=== PATIENT | male | born 1980 | race Caucasian/White ===

== ENCOUNTER 2020-03-31 13:35 | Emergency (ER) | payer OTHER, SELFPAY ==
[2020-03-31 14:03] VITALS: BP 140/54; PULSE 87; RESP 16; TEMP 37.1; O2SAT 99
--- NOTE | 2020-03-31 14:37 | ED.SKABFB ---
HPI - Skin/Abscess/Foreign Bdy General Chief complaint: Skin/Abscess/Foreign Body Stated complaint: rash/right hand Time Seen by Provider: 03/31/20 14:37 Source: patient Mode of arrival: ambulatory Limitations: no limitations History of Present Illness HPI narrative: Zev Coronel is a 39 yo male with no PMH who comes to express care for c/o small vesicular rash on dorsum of R hand x 7 days- small area Related Data Home Medications Medication Instructions Recorded Confirmed No Home Medications 03/31/20 03/31/20 Allergies Allergy/AdvReac Type Severity Reaction Status Date / Time sulfamethoxazole Allergy Mild Rash Verified 03/31/20 14:16 trimethoprim Allergy Mild Rash Verified 03/31/20 14:16 Review of Systems Review of Systems: Narrative: CONSTITUTIONAL: Denies fever, chills, sweats. EYES: Denies visual changes, redness, discharge. ENT: Denies rhinorrhea, congestion, sore throat, otalgia. CARDIOVASCULAR: Denies chest pain, palpitations, edema. RESPIRATORY: Denies dyspnea, wheezing, cough GASTROINTESTINAL: Denies abdominal pain, nausea, vomiting, diarrhea. GENITOURINARY: Denies dysuria, hematuria, abnormal discharge SKIN: Rash on small area right dorsum of hand. NEUROLOGIC: Denies numbness, or focal weakness. PSYCHIATRIC: Denies anxiety or depression. [facility] Family History Family History Other No acute medical problems Social History Social History (Updated 03/31/20 @ 14:40 by Karlene Garcia CNP) Smoking status: Never smoker Alcohol intake: current Gender identity (if verbalized by the patient): Male Comments At time of signature, I agree with nursing past medical, surgical, social and family history. There is no relevant family history pertinent to the presenting complaint. Exam Narrative: Exam Narrative: GENERAL: This is a well-nourished, well-developed patient, psych arnp distress. HEAD: normocephalic, atraumatic. EYES: Sclera clear/white. Vision is grossly intact. EARS: External ears normal, . Hearing grossly intact. NOSE: External nose normal without nasal discharge, nares without redness, no rhinorrhea. THROAT: Mucous membranes moist, NECK: Neck supple, CARDIOVASCULAR: Regular rate and rhythm without murmurs, gallops, or rubs. RESPIRATORY: Clear to auscultation. Breath sounds equal bilaterally. No wheezes, rales, or rhonchi. GASTROINTESTINAL: Abdomen soft, SKIN: warm, intact with small 2x3 lesion with vesiculars, no spread, no swelling NEURO: awake, alert, and oriented to person, place and time. There were no obvious focal neurologic abnormalities. EXTREMITIES: Normal range of motion. BACK: without deformity Course Course Emergency Course: rrecommended hydrocortisone cream to area- cover only at work Vital Signs Vital signs: Vital Signs Temperature 98.8 F 03/31/20 14:03 Pulse Rate 87 03/31/20 14:03 Respiratory Rate 16 03/31/20 14:03 Blood Pressure 140/54 L 03/31/20 14:03 Pulse Oximetry 99 03/31/20 14:03 Temperature 98.8 F 03/31/20 14:03 Pulse Rate 87 03/31/20 14:03 Respiratory Rate 16 03/31/20 14:03 Blood Pressure 140/54 L 03/31/20 14:03 Pulse Oximetry 99 03/31/20 14:03 MDM - Skin/Abscess/Foreign Bdy Differential Diagnosis Differential diagnosis: Likely abscess of skin or subcutaneous tissue, allergic reaction to drug, contact dermatitis and other Discharge Plan Discharge Clinical Impression: Contact dermatitis Qualifiers: Contact dermatitis type: unspecified Contact dermatitis trigger: unspecified trigger Qualified Code(s): L25.9 - Unspecified contact dermatitis, unspecified cause Patient Disposition: Home, Self-Care Condition: Stable Instructions: Contact Dermatitis (DC) Prescriptions: No Action No Home Medications RF: 0 Follow-up/Referrals: UNKNOWN,DOCTOR [Primary Care Provider] - Time of Disposition: 14:52 Discharge Date/Time: 03/31/20 1
== END 2020-03-31 14:55 | disposition home or self-care (01) ==
PROVIDERS: Emergency Provider Nurse Practitioner
DX: L25.9 Unspecified contact dermatitis, unspecified cause (principal)
CPT/HCPCS: 99211; G0463